=== PATIENT | male | born 1970 | race Caucasian/White ===

== ENCOUNTER → 2020-08-27 | Emergency (ER) | payer OTHER ==
[~2020-08-27] MED LIST: PROPOFOL 20 ML ONE
--- NOTE | 2020-08-27 22:14 | RAD ---
2 views right hip: 08/27/2020 COMPARISON: None HISTORY: Injury, pain FINDINGS: There is a dislocated right hip arthroplasty. Incompletely imaged extensive postoperative h ardware of the femur noted. The femoral component is dislocated anteriorly and laterally as well as proximally. IMPRESSION: Dislocated right hip arthroplasty.
[2020-08-28 08:24] LABS: SARS-CoV-2 MS2 Positive; SARS-CoV-2 N Gene Negative; SARS-CoV-2 S Gene Negative; SARS-CoV-2 by NAA Not Detected (NotDetected); SARS-CoV-2 orf1ab Negative
== END ==
LOC: ERS 21:07
DX: S73.004A Unspecified dislocation of right hip, initial encounter (principal); W06.XXXA Fall from bed, initial encounter
CPT/HCPCS: 87635; 96360; 99152; J2704; U0003

== ENCOUNTER 2020-09-18 10:13 | Emergency (ER) | payer OTHER ==
--- NOTE | 2020-09-18 10:51 | RAD ---
Exam:Right hip 2 views HISTORY: Soreness. Pain. COMPARISON: 08/27/2020 FINDINGS: There appears to be redemonstration of dislocation of the right hip arthroplasty. No fractu re. IMPRESSION: Right hip arthroplasty dislocation.
[2020-09-18] MEDS ORDERED: PROPOFOL 20 ML ONE ×2 (11:49→13:21)
--- NOTE | 2020-09-18 12:34 | RAD ---
EXAM: 2 views of the right hip HISTORY: Right hip prostheses dislocation COMPARISON: 09/18/2020 at 10:27 AM FINDINGS: 2 views of the right hip shows persistent dislocation of the right hip prosthesis. Large he terotopic ossification is seen superior to the prosthesis. IMPRESSION: Persistent dislocation of the right hip prosthesis.
--- NOTE | 2020-09-18 14:13 | RAD ---
RIGHT HIP 2 VIEWS: Date: 09/18/2020 Time: 1341 hours INDICATION: Post reduction. Comparison made to pre reduction films. FINDINGS: The hip prosthetic components now appear adequately positioned. The findings indicate adequate reduct ion of the dislocated prosthesis. No acute fracture. No other acute finding. IMPRESSION: Reduction of the dislocation of the right hip prosthesis. POS: AGW
--- NOTE | 2020-09-18 14:13 | RAD ---
RIGHT HIP ONE VIEW: 09/18/20 INDICATIONS: Post reduction. COMPARISON: Comparison made to prereduction films. FINDINGS/IMPRESSION: There continues to be dislocation of the right hip prosthesis. No interval change. POS: AGW
== END 2020-09-18 14:32 ==
LOC: ERS 10:13
DX: T84.020A Dislocation of internal right hip prosthesis, initial encounter (principal)
CPT/HCPCS: 27265; 96374; 99156; J2704